=== PATIENT | female | born 1975 | race African-American/Black ===

== ENCOUNTER 2017-05-09 15:02 | Emergency (ER) | payer MEDICAID, OTHER ==
[~2017-05-09] VITALS: Ht 157.5 cm; Wt 69.0 kg
[2017-05-09 15:25] VITALS: BP 117/69
== END 2017-05-09 18:40 | disposition left against medical advice (07) ==
LOC: ER 15:02
DX: M79.604 Pain in right leg (principal); Z53.21 Procedure and treatment not carried out due to patient leaving prior to being seen by health care provider

== ENCOUNTER 2022-04-24 06:46 | Emergency (ER) | payer OTHER ==
[~2022-04-24] VITALS: Ht 172.7 cm; Wt 65.0 kg
[2022-04-24 07:12] VITALS: BP 146/86
[2022-04-24] MEDS ORDERED: LIDOCAINE HCL/PF 1% 10 MG/ML 5ML VIAL INFIL ONE (07:30)
== END 2022-04-24 09:01 | disposition home or self-care (01) ==
LOC: ER 07:10
DX: S81.812A Laceration without foreign body, left lower leg, initial encounter (principal); W26.8XXA Contact with other sharp object(s), not elsewhere classified, initial encounter; Y93.39 Activity, other involving climbing, rappelling and jumping off; Y92.017 Garden or yard in single-family (private) house as the place of occurrence of the external cause
CPT/HCPCS: 12001; 99283; J3490

== ENCOUNTER 2022-05-05 11:38 | Emergency (ER) | payer OTHER ==
[~2022-05-05] VITALS: Ht 157.5 cm; Wt 74.0 kg
[2022-05-05 11:41] VITALS: BP 154/104
== END 2022-05-05 12:52 | disposition home or self-care (01) ==
LOC: ER 11:38
DX: S81.812D Laceration without foreign body, left lower leg, subsequent encounter (principal); X58.XXXD Exposure to other specified factors, subsequent encounter; I10 Essential (primary) hypertension
CPT/HCPCS: 99281

== ENCOUNTER 2022-05-08 08:03 | Emergency (ER) | payer OTHER ==
[~2022-05-08] VITALS: Ht 157.5 cm; Wt 74.0 kg
[2022-05-08 08:08] VITALS: BP 169/108
== END 2022-05-08 09:07 | disposition home or self-care (01) ==
LOC: ER 08:03
DX: Z48.00 Encounter for change or removal of nonsurgical wound dressing (principal); I10 Essential (primary) hypertension
CPT/HCPCS: 99281

== ENCOUNTER 2022-05-22 07:31 | Emergency (ER) | payer OTHER ==
[~2022-05-22] VITALS: Ht 165.1 cm; Wt 77.0 kg
[2022-05-22 07:36] VITALS: BP 172/107
== END 2022-05-22 08:42 | disposition home or self-care (01) ==
LOC: ER 07:31
DX: Z48.02 Encounter for removal of sutures (principal); I10 Essential (primary) hypertension
CPT/HCPCS: 99281

== ENCOUNTER 2023-04-14 20:40 | Emergency (ER) | payer OTHER ==
[~2023-04-14] VITALS: Ht 157.5 cm; Wt 69.3 kg
[2023-04-14 20:45] VITALS: BP 178/106; O2SAT 100
[2023-04-14] MEDS ORDERED: FLUORESCEIN SODIUM 1MG/STRIP RIGHTEYE ONE (21:45)
[2023-04-14] MEDS ORDERED: TETRACAINE 0.5% OPHTH DROPS 4ML RIGHTEYE ONE (21:45)
[2023-04-14] MEDS ORDERED: ERYT1OIN6 RIGHTEYE (22:10)
[2023-04-14 22:27] VITALS: PULSE 90; RESP 14; TEMP 98.5
== END 2023-04-14 22:28 | disposition home or self-care (01) ==
LOC: ER 20:40
DX: T15.91XA Foreign body on external eye, part unspecified, right eye, initial encounter (principal); X58.XXXA Exposure to other specified factors, initial encounter; I10 Essential (primary) hypertension
CPT/HCPCS: 99282; 99283